=== PATIENT | female | born 1985 | race African-American/Black ===

== ENCOUNTER 2023-11-17 16:18 | Emergency (ER) | payer MEDICAID, OTHER ==
[~2023-11-17] VITALS: Ht 165.1 cm; Wt 105.0 kg
[2023-11-17 17:51] VITALS: TEMP 98.9; O2SAT 99
[2023-11-17] MEDS ORDERED: IBUP-2029 MT (22:35)
[2023-11-17] MEDS ORDERED: CYCL10TA21 PO (22:36)
[2023-11-17 23:07] VITALS: BP 120/81; PULSE 82; RESP 16; O2SAT 99
== END 2023-11-17 23:09 | disposition home or self-care (01) ==
LOC: ER 16:18
DX: S39.012A Strain of muscle, fascia and tendon of lower back, initial encounter (principal); Z98.51 Tubal ligation status; W01.0XXA Fall on same level from slipping, tripping and stumbling without subsequent striking against object, initial encounter; Y93.89 Activity, other specified; Y92.89 Other specified places as the place of occurrence of the external cause; Y99.8 Other external cause status
CPT/HCPCS: 73100; 73502; 73560; 81025; 99284